=== PATIENT | male | born 1980 | race Caucasian/White ===

== ENCOUNTER → 2019-09-12 | Day surgery (SDC) | payer OTHER ==
[~2019-09-12] MED LIST: Acetaminophen TAB* 325 MG ONE; Acetaminophen TAB* 325 MG PO ONE; Buffered Lidocaine 1% SYRIN* 1 ML/SYRINGE INTRADERM ONE; Bupivacaine 0.25% SDV PF* 10 ML VIAL INJ ONE; Dexamethasone IV* 4 MG/ML 1 ML (4 MG) ONE; Glycopyrrolate IV* 0.2 MG/ML 1 ML VIAL ONE; HYDROmorphone INJ1* 1 MG/ML SYRINGE ONE; HYDROmorphone TAB* 2 MG PO PRN; Ketorolac INJ* 30 MG/ML 1 ML VIAL ONE; Lactated Ringers 1000 ML Bag* 1,000 ML IV SCH; Lidocaine 2% PF* 10 ML AMP ONE; Midazolam* 1 MG/ML 2 ML VIAL (2 MG) ONE; Naloxone* 0.4 MG/ML 1 ML VIAL IV PRN; Neostigmine Methylsulfate* 3 MG/3 ML SYRINGE ONE; Ondansetron INJ* 2 MG/ML VIAL IV PRN; Ondansetron INJ* 2 MG/ML VIAL ONE; PROCHLORPERAZINE INJ 5 MG/ML 2 ML VIAL IV PRN; Propofol* 10 MG/ML 20 ML BTL ONE; ceFAZolin 1 GM ADVAN(*) 1 GM ADDV.VIAL IVPB ONE; ceFAZolin 2 GM in NS PREMIX(*) 2 GM/100 ML BAG IVPB ONE; diPHENhydraMINE IV* 50 MG/ML 1 ml VIAL (BENADRYL) IV PRN; fentaNYL* 50 MCG/ML 2 ML VIAL (100 MCG VIAL) ONE; oxyCODONE TAB* 5 MG TAB ONE; oxyCODONE TAB* 5 MG TAB PO PRN
[2019-09-12] MEDS: fentaNYL* 50 MCG/ML 2 ML VIAL (100 MCG VIAL) IV PRN ×4 (14:38→14:54)
[2019-09-12] MEDS: HYDROmorphone INJ1* 1 MG/ML SYRINGE IV PRN ×5 (14:56→15:26)
--- NOTE | 2019-09-12 15:13 | OP ---
Operative Report - Blank - Operative Report Date of Operation: 09/12/19 Note: PATIENT: Avel Denny DATE OF : 1980 DATE OF SURGERY: 09/12/2019 SURGEON: Jose Muse MD [employer]ING [employer] MECH[employer]IC: NAE Wilson, whos assistance was necessary for positioning, retraction, help with instrumentation, and closure. ANESTHESIOLOGIST: Dr. 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 OPERATION: 1. Right ankle arthroscopy with extensive debridement. 2. Open reduction and internal fixation of the right distal tibia-fibula syndesmosis. 3. Right ankle modified Brostrom procedure lateral ligament reconstruction. 4. Right ankle deltoid ligament reconstruction. ANESTHESIA: General IMPLANTS: Arthrex syndesmotic tight ropes and 2 hole plate. Arthrex fibertak suture anchors x4. TOURNIQUET TIME: Less than 2 hours with a well-padded thigh tourniquet at 250 mmHg SPECIMENS: none ESTIMATED BLOOD LOSS: minimal COMPLICATIONS: none STATUS: Stable from the operating room to the recovery room and then home. INDICATIONS FOR PROCEDURE: Fly sustained an ankle injury about a months ago with persistent medial and lateral ankle pain and instability. Both operative and non operative treatment alternatives were reviewed. Further, the nature and risks of surgery were reviewed in careful detail, in the office as well as the pre-operative holding area. Our discussions regarding the risks of surgery included, but were not limited to, infection, wound problems, nerve injury, neuroma, RSD, persistent symptoms, blood clot, failure of the surgery, and even the remote chance of catastrophic complication. DESCRIPTION OF PROCEDURE: The patient was seen in the preoperative holding unit and informed written consent was obtained. The appropriate extremity was marked. The patient was then brought to the operating room and carefully positioned on the operating room table. Anesthesia was induced. All bony prominences were padded with great care. A well-padded thigh tourniquet was placed. A chlorhexidine based pre- scrub was performed followed by a chloraprep prep and drape in standard sterile fashion. A surgical safety pause was then conducted in which we confirmed the appropriate patient, extremity, planned procedure, availability of equipment, indication and administration of prophylactic antibiotics, and DVT prophylaxis in the form of a compression boot on the non-surgical extremity. An Esmarch exsanguination of the limb was then performed and the tourniquet inflated. The leg was positioned in the noninvasive ankle arthroscopy leg lucia setup. I began by establishing the anteromedial portal. I utilized a spinal needle for this. Great care was taken to protect the superficial neurovascular structures. Under direct visualization, I then established an anterolateral portal. Great care was taken to protect the superficial peroneal nerve. I utilized the full radius shaver to remove a considerable amount of synovitis from the anterior aspect of the ankle joint. This was carefully removed to give a nice view of the ankle joint. I stressed the distal tib-fib syndesmosis and instability was appreciated arthroscopically. The articular cartilage looked quite good and no osteochondral lesions were appreciated. I removed the arthroscopic equipment and closed the portals utilizing 3-0 nylon suture. I then made an approximately 10 cm incision overlying the distal fibula. This was made in line with the distal fibula and then curving anteriorly in line with the fourth ray. Dissection was carried down through the soft tissues. Superficial hemostasis was obtained. I dissected down to the lateral fibula. I manually reduced the distal tib-fib syndesmosis and placed a clamp to hold it in place. This is confirmed fluoroscopically. Then under fluoroscopic guidance , I placed 2 distal tib-fib syndesmosis tight ropes through a 2 hole Arthrex plate. The clamp was removed and the syndesmosis was held well reduced. I then turned my attention to the lateral ankle capsuloligamentous complex. The periosteal and ligamentous layer was then dissected anteriorly to expose the anterolateral ankle ligaments. Once we had adequately exposed a pocket anterior to the ligaments, we sharply took the ligaments down off of the anterior and distal aspect of the fibula using a 15 blade. The inferior extensor retinaculum was exposed and protected for subsequent repair later in the procedure. I then utilized a rongeur to make a trough along the fibula to receive the reconstructed ligaments. I then utilized 2 Arthrex fibertak suture anchors to repair the lateral ligaments utilizing a horizontal mattress suture. These sutures were all passed with great care taken to appropriately tension both the ATFL as well as the CFL in order to get a nice tight repair. We held the ankle in a dorsiflexed and everted position while the ligaments and sutures were tied down. These held the ankle in a much improved position with excellent tension on the ligaments. We further augmented the repair by bringing the inferior extensor retinaculum up to the fibula. There was a much improved anterior drawer at this point as compared to pre-operatively. The wound was copiously irrigated. I then made a longitudinal incision overlying the medial malleolus. Dissection was taken down to the periosteum and deltoid vitamin. I sharply took the ligament down off the anterior and distal aspect of the medial malleolus using a 15 blade. I then utilized a Rongeur to make a trough along the medial malleolus. I then used 2 Arthrex fibertak suture anchors to repair the deltoid ligament down to the medial malleolus using a horizontal mattress suture. These sutures were used to tighten down the deltoid ligament. A nice tight repair was obtained. The wound was then irrigated and closed in a layered fashion utilizing 3-0 Monocryl and 3-0 nylon. At this point, a sterile dressing was applied and the ankle was splinted in a neutral position. The patient was then awakened from anesthesia and transferred to the recovery room in stable condition. There were no complications. All needle and sponge counts were correct at the end of the case. ATTESTATION: I attest I was present and scrubbed and performed the critical portions of the procedure myself. POSTOPERATIVE PLAN: The patient will remain nonweightbearing for an anticipated duration of six weeks. Follow up will be in two weeks for likely suture removal , Steri-Strip application and transition into a short leg cast.
[2019-09-12 16:20] VITALS: BP 122/86
== END | disposition home or self-care (01) ==
LOC: OR 10:24
PROVIDERS: ATTEND Orthopaedic Surgery
DX: S93.491D Sprain of other ligament of right ankle, subsequent encounter (principal); M25.371 Other instability, right ankle; X58.XXXD Exposure to other specified factors, subsequent encounter; Y92.89 Other specified places as the place of occurrence of the external cause; E66.9 Obesity, unspecified
CPT/HCPCS: 76000; A9270-GY; C1713; J0690; J1100; J1170; J1885; J2001; J2250; J2405; J2704; J2710; J3010; J3490